=== PATIENT | female | born 1955 | race Caucasian/White ===

== ENCOUNTER 2021-09-14 07:25 | Observation (INO) ==
[2021-09-14] MEDS ORDERED: 0.9 % Sodium Chloride 1,000 ML ONE ×3 (07:32→12:12)
[2021-09-14] MEDS ORDERED: *HR* FentaNYL (PF) 100 MCG/2 ML VIAL ONE (09:11)
[2021-09-14] MEDS ORDERED: *HR* Midazolam HCl 2 MG/2 ML VIAL ONE (09:11)
[2021-09-14] MEDS ORDERED: *HR* Heparin 10,000 UNIT/10 ML VIAL ONE (09:18)
[2021-09-14] MEDS ORDERED: Heparin 1,000 UNITS/500 mL 1,000 ML ONE (09:18)
[2021-09-14] MEDS ORDERED: ISOVUE-370 200 ML INFUS..BTL ONE (09:26)
[2021-09-14] MEDS ORDERED: Heparin 1,000 UNITS/500 mL 500 ML ONE ×3 (09:28→12:11)
[2021-09-14] MEDS ORDERED: Lidocaine -MPF 4% 5 ML AMPUL TP ONE (10:24)
[2021-09-14] MEDS ORDERED: Lidocaine -MPF 2% 5 ML VIAL SQ ONE (10:24)
[2021-09-14] MEDS ORDERED: *HR* Propofol 200 MG/20 ML VIAL IVP ONE (10:24)
[2021-09-14] MEDS ORDERED: EPHEDrine 50 MG/ML VIAL IVP ONE (10:24)
[2021-09-14] MEDS ORDERED: *HR* Rocuronium Bromide 50 MG/5 ML VIAL IVP ONE (10:24)
[2021-09-14] MEDS ORDERED: Ondansetron 4 MG/2 ML VIAL IVP ONE (10:24)
[2021-09-14] MEDS ORDERED: *HR* Succinylcholine 200 MG/10 ML VIAL IVP ONE (10:24)
[2021-09-14] MEDS ORDERED: Protamine Sulfate 50 MG/5 ML VIAL IVP ONE (12:11)
[2021-09-14] MEDS ORDERED: Naloxone 0.4 MG/ML INJ IVP PRN (12:31)
[2021-09-14] MEDS ORDERED: *HR* Warfarin 5 MG TABLET PO SCH (18:00)
[2021-09-14] MEDS ORDERED: tiZANidine 4 MG TABLET PO SCH (21:00)
[2021-09-14] MEDS: Gabapentin 300 MG CAPSULE PO SCH (21:13)
[2021-09-15 06:33] VITALS: BP 111/51; PULSE 66; TEMP 97.9; O2SAT 94
[2021-09-15] MEDS ORDERED: lisinopriL 20 MG TABLET PO SCH (09:00)
[2021-09-15] MEDS ORDERED: Spironolactone 25 MG TABLET PO SCH (09:00)
[2021-09-15] MEDS ORDERED: FLUoxetine 20 MG CAPSULE PO SCH (09:00)
[2021-09-15] MEDS ORDERED: amLODIPine 5 MG TABLET PO SCH (09:00)
[2021-09-15] MEDS: Gabapentin 300 MG CAPSULE PO SCH (09:17)
== END 2021-09-15 10:25 | disposition home or self-care (01) ==
LOC: 2NENU 07:25 → INVDIALAB 07:25
PROVIDERS: ADMIT Thoracic Surgery (Cardiothoracic Vascular Surgery); ATTEND Thoracic Surgery (Cardiothoracic Vascular Surgery)